=== PATIENT | male | born 2005 | race Two or more races ===

== ENCOUNTER → 2024-07-11 | Emergency (ER) | payer MEDICAID ==
[~2024-07-11] VITALS: Ht 157.5 cm; Wt 65.8 kg
[2024-07-11 21:21] LABS: *BILIRUBIN,URIN NEGATIVE (NEGATIVE); *BLOOD, URINE NEGATIVE (NEGATIVE); *CLARITY,URINE CLEAR (CLEAR); *COLOR,URINE LIGHT YELLOW (YELLOW); *KETONES,URINE NEGATIVE (NEGATIVE); *PROTEIN,URINE NEGATIVE (NEGATIVE); *UROBILINOGEN,URINE 0.2 E.U./dl (NORMAL); LEUKOCYTE ESTERASE ,URINE NEGATIVE (NEGATIVE); NITRITE, URINE NEGATIVE (NEGATIVE); UGLUCOSE NEGATIVE (NEGATIVE)
[2024-07-11 23:07] VITALS: BP 142/74; O2SAT 98
== END | disposition home or self-care (01) ==
LOC: ER 21:07
DX: S30.22XA Contusion of scrotum and testes, initial encounter (principal); R03.0 Elevated blood-pressure reading, without diagnosis of hypertension; W21.04XA Struck by golf ball, initial encounter; Y93.53 Activity, golf; Y92.89 Other specified places as the place of occurrence of the external cause; Y99.8 Other external cause status
CPT/HCPCS: 76870; A4606; A4663